=== PATIENT | male | born 1955 | race African-American/Black ===

== ENCOUNTER 2020-12-16 01:21 | Inpatient (IN) | payer OTHER ==
[~2020-12-16] VITALS: Ht 182.9 cm; Wt 63.5 kg
[~2020-12-16 01:21] MED LIST: AMLODIPINE BESY10 MG PO; CHOLESTROL MED; CIPROFLOXACIN500 M1 PO; HTN MEDS; IBUPROFEN 600600 M1 PO; LIDODERM 5%1 PATC1 TRANSDERM; LISINOPRIL10 MG PO; LISINOPRIL5 MG PO; NOHOMEMEDICATIONS; NORCO 5-325 TA1 EACH PO; NORVASC5 MG PO; TRAMADOL 50 MG50 MG PO; ZPAK PO
[2020-12-16 01:24] VITALS: BP 131/86
[2020-12-16] MEDS ORDERED: NORVASC10 MG PO (01:32)
[2020-12-16] MEDS ORDERED: LIPITOR 20 MG T20 M1 PO (01:33)
[2020-12-16 01:53] LABS: ABSOLUTE NEUTROPHILS 4.1 thou/uL (1.4-8.2); BASOPHILS 0.8 % (0.0-2.0); EOSINOPHILS 1.2 % (0.0-3.0); HEMATOCRIT 39.2 % (42.0-52.0); LYMPHOCYTES 37.9 % (24.0-44.0); MCH 31.7 pg (26.0-34.0); MCHC 33.2 g/dL (28.0-37.0); MCV 95.4 fL (80.0-100.0); MONOCYTES 9.7 % (1.0-8.0); PLATELET COUNT 235 thou/uL (150-400); POLYS 50.4 % (36.0-66.0); RBC 4.11 mil/uL (4.50-6.00); RDW 13.3 % (10.5-14.5); WBC 8.2 thou/uL (4.0-11.0)
[2020-12-16 01:55] LABS: CALCIUM 9.8 mg/dL (8.5-10.1); CREATININE 3.4 mg/dL (0.7-1.3)
[2020-12-16 02:01] LABS: ALBUMIN 4.3 g/dL (3.4-5.0); TOTAL BILIRUBIN 0.4 mg/dL (0.2-1.0)
[2020-12-16 04:42] LABS: URINE BILIRUBIN 1+ (Negative); URINE BLOOD NEGATIVE (Negative); URINE CLARITY SL CLOUDY; URINE COLOR YELLOW; URINE GLUCOSE-RANDOM* NEGATIVE (Negative); URINE KETONES TRACE (Negative); URINE NITRITE-REFLEX NEGATIVE (Negative); URINE PROTEIN (DIPSTICK) 2+ (Negative); URINE SPECIFIC GRAVITY >= 1.030 (1.005-1.035)
[2020-12-16 04:49] LABS: URINE LEUKOCYTES-REFLEX 2+ (Negative)
[2020-12-16 04:55] LABS: SQUAMOUS 4-10 Moderate /LPF (0-3)
[2020-12-16 04:56] LABS: BACTERIA-REFLEX 1-9 Few /HPF (None Seen); FINE GRANULAR CASTS 0-3 Few /LPF (None Seen); HYALINE CASTS 0-3 Few /LPF (None Seen); MUCUS 0-3 Light strn/LPF (None Seen)
[2020-12-16 04:57] LABS: CRYSTALS None Seen /LPF (None Seen)
[2020-12-16 17:30] VITALS: BP 155/90
[2020-12-16 17:52] VITALS: BP 169/103
[2020-12-16 18:17] VITALS: BP 165/129
[2020-12-17 00:05] VITALS: BP 164/89
--- NOTE | 2020-12-17 04:14 | NUR ---
Patient admission history reviewd and Admission assessments compleed and care plan initiated. Vital signs and rhythm stable. High fall risks, fall precautions in place. IVfluids infusing. Consent to obtain medical records signed by patient. Right flank pain, patient states he does not need pain medication.
[2020-12-17 04:30] VITALS: BP 175/95
[2020-12-17 05:18] LABS: ABSOLUTE NEUTROPHILS 4.2 thou/uL (1.4-8.2); BASOPHILS 0.5 % (0.0-2.0); EOSINOPHILS 1.9 % (0.0-3.0); HEMATOCRIT 35.3 % (42.0-52.0); HEMOGLOBIN 11.9 gm/dL (14.0-18.0); LYMPHOCYTES 27.6 % (24.0-44.0); MCH 32.5 pg (26.0-34.0); MCHC 33.6 g/dL (28.0-37.0); MCV 96.5 fL (80.0-100.0); PLATELET COUNT 178 thou/uL (150-400); RBC 3.66 mil/uL (4.50-6.00); RDW 13.4 % (10.5-14.5); WBC 6.8 thou/uL (4.0-11.0)
[2020-12-17 05:33] LABS: CALCIUM 8.7 mg/dL (8.5-10.1); MAGNESIUM 1.9 mg/dL (1.8-2.4)
[2020-12-17 05:35] LABS: CREATININE 2.3 mg/dL (0.7-1.3)
[2020-12-17 07:31] VITALS: BP 164/111
[2020-12-17 15:08] VITALS: BP 147/92
[2020-12-17 19:14] VITALS: BP 151/94
[2020-12-18 03:32] VITALS: BP 161/100
--- NOTE | 2020-12-18 05:03 | NUR ---
Patient making slow progress towards outcome goals. Rhythm stable. High fall risks, fall precautions in place. Calls out appropriately for needs.
[2020-12-18 05:31] LABS: HEMATOCRIT 34.6 % (42.0-52.0); HEMOGLOBIN 11.5 gm/dL (14.0-18.0); MCH 32.2 pg (26.0-34.0); MCHC 33.2 g/dL (28.0-37.0); MCV 96.9 fL (80.0-100.0); RBC 3.57 mil/uL (4.50-6.00); RDW 13.4 % (10.5-14.5); WBC 6.6 thou/uL (4.0-11.0)
[2020-12-18 05:33] LABS: CALCIUM 8.6 mg/dL (8.5-10.1); CREATININE 1.7 mg/dL (0.7-1.3)
[2020-12-18 07:56] VITALS: BP 165/96
[2020-12-18 15:57] VITALS: BP 137/80
[2020-12-18 19:35] VITALS: BP 145/89
--- NOTE | 2020-12-19 04:18 | NUR ---
Patient making progress towards outcome goals. Vital signs and rhythm stable. High fall risks, fall precautions in place. IVfluids infusing. IV RAC redressed and wrapped with coban. Labs improving.
[2020-12-19 04:20] VITALS: BP 143/93
[2020-12-19 05:15] LABS: HEMATOCRIT 35.4 % (42.0-52.0); HEMOGLOBIN 11.7 gm/dL (14.0-18.0); MCH 32.1 pg (26.0-34.0); MCHC 33.2 g/dL (28.0-37.0); MCV 96.7 fL (80.0-100.0); RBC 3.66 mil/uL (4.50-6.00); RDW 12.8 % (10.5-14.5); WBC 6.5 thou/uL (4.0-11.0)
[2020-12-19 05:34] LABS: CALCIUM 8.8 mg/dL (8.5-10.1); CREATININE 1.7 mg/dL (0.7-1.3)
[2020-12-19 07:21] VITALS: BP 163/110
[2020-12-19 11:27] VITALS: BP 149/99
[2020-12-19] MEDS ORDERED: FOLIC ACID1 MG PO (12:26)
[2020-12-19] MEDS ORDERED: CEPHALEXIN500 MG PO (12:42)
[2020-12-19 13:30] VITALS: BP 149/99
--- NOTE | 2020-12-19 15:15 | NUR ---
INITIAL ASSESSMENT/DISCHARGE NOTE: SW reviewed chart and spoke with nursing and attending physician. Pt was admitted from home due to MARI. Pt is medically stable for discharge home today. SW notified that pt needs transportation home. SW met with pt at bedside. introduced role of SW. Pt is alert/orientated and lives at home. Pt was independent with ADLs prior to admission. Pt states that he needs his shoes in order to discharge home. Pt reports he had his shoes when he came to the ER. SW confirmed pt's home address. Voucher # [id number] provided to nursing to call when pt is ready for discharge. No additional SW needs identified at this time, but is available to assist should needs arise.
== END 2020-12-19 15:27 | disposition home or self-care (01) | DRG 682 ==
LOC: ER 01:21 → EROBS 05:42 → 3W 18:11
PROVIDERS: Emergency Medicine; Nurse Practitioner; ADMIT Hospitalist; ATTEND Hospitalist
DX: N17.9 Acute kidney failure, unspecified (principal); J96.01 Acute respiratory failure with hypoxia; N30.90 Cystitis, unspecified without hematuria; N12 Tubulo-interstitial nephritis, not specified as acute or chronic; E78.5 Hyperlipidemia, unspecified; F17.210 Nicotine dependence, cigarettes, uncomplicated; K40.90 Unilateral inguinal hernia, without obstruction or gangrene, not specified as recurrent; N18.9 Chronic kidney disease, unspecified; I12.9 Hypertensive chronic kidney disease with stage 1 through stage 4 chronic kidney disease, or unspecified chronic kidney disease; Z20.822 Contact with and (suspected) exposure to COVID-19; F10.129 Alcohol abuse with intoxication, unspecified; Y90.9 Presence of alcohol in blood, level not specified; R91.1 Solitary pulmonary nodule; Z71.6 Tobacco abuse counseling
CPT/HCPCS: 10879